=== PATIENT | female | born 1960 | race Caucasian/White ===

== ENCOUNTER 2018-10-03 18:19 | Inpatient (IN) | payer MEDICARE, OTHER ==
[~2018-10-03 18:19] MED LIST: ISOVUE-370 76%-LOCM 1 ML ONE
--- NOTE | 2018-10-03 18:37 | CT ---
Head CT without contrast 10/03/2018: COMPARISON: 07/08/2014 HISTORY: Right-sided weakness, unresponsive TECHNIQUE: Axial CT imaging at 5 mm intervals from vertex through skull base without contrast FINDINGS: The imaged paranasal sinuses and mastoid air cells appear well-aerated. No displaced calvar ial fracture. No intracranial hemorrhage, midline shift, mass effect, or ventricular enlargement. IMPRESSION: No acute findings. Results called to Dr. Cates at 6:32 PM 10/03/2018
[2018-10-03 18:41] LABS: Hemoglobin 12.3 g/dL (12.0-16.0); Mean Corpuscular HGB CONC 32.5 g/dL (32.0-36.0); Mean Corpuscular Hemoglobin 25.8 pg (27.0-31.0); Mean Corpuscular Volume 79.3 fL (78.0-98.0); Mean Platelet Volume 7.7 fL (7.4-10.4); Platelet Count 382 thou/uL (130-400); RBC Distribution Width 14.3 % (11.5-14.5); Red Blood Cell (RBC) Count 4.76 mill/uL (4.20-5.40); White Blood Cell (WBC) Count 10.3 thou/uL (4.8-10.8)
[2018-10-03 18:45] LABS: PTT 27.1 SEC (22.9-36.1); Prothrombin Time 13.1 SEC (12.0-14.7)
[2018-10-03 18:55] LABS: ALT (SGPT) 37 U/L (8-55); AST (SGOT) 20 U/L (5-34); Albumin 4.5 g/dL (3.5-5.0); Alkaline Phosphatase 121 U/L (40-150); Anion Gap 14 mmol/L (10-20); BUN (Urea Nitrogen) 22 mg/dL (9.8-20.1); Bilirubin, Total 0.2 mg/dL (0.2-1.2); Calc. Creatinine Clearance 0 mL/min (70-130); Calcium 9.8 mg/dL (7.8-10.44); Carbon Dioxide 23 mmol/L (22-29); Chloride 107 mmol/L (98-107); Estimated GFR-MDRD 49; Glucose 128 mg/dL (70-105); Potassium 4.1 mmol/L (3.5-5.1); Protein, Total 7.5 g/dL (6.0-8.3); Sodium 140 mmol/L (136-145)
[2018-10-03] MEDS ORDERED: Ondansetron PF 4 MG/2 ML Vial ONE (18:59)
[2018-10-03 19:09] LABS: Band 1 % (5-11); Lymphocytes 7 % (21-51); MDiff Complete? YES; Neutrophil 90 % (42-75); Platelet Morphology Comment Appears Adequate; RBC Morphology Normal; Reactive Lymphocytes 1 % (0-10)
[2018-10-03 19:42] LABS: Bilirubin Negative (Negative); Blood, Urine Moderate (Negative); Clarity CLEAR (Clear); Glucose, Urine (Dipstick) Negative (Negative); Leukocyte Negative (Negative); Nitrite Negative (Negative); Protein, Urine (Dipstick) Negative (Neg-Trace); Specific Gravity, Urine 1.021 (1.002-1.036); Urobilinogen 0.2 mg/dL (0.2-1.0); pH, Urine 6.5 (5.0-9.0)
[2018-10-03 19:43] LABS: Bacteria/HPF None Seen HPF (None Seen); Pathc Cast-AUWi Flag 2.31 (0-2.49)
[2018-10-03 19:54] LABS: Hyaline Casts/LPF NONE SEEN LPF (0-3 Hyaline); Squamous Epithelial 0-3 HPF (0-3); Transitional Epithelial 0-3 HPF (0-3)
[2018-10-03] MEDS ORDERED: Ondansetron ODT 4 MG TAB SL PRN (22:43)
[2018-10-03] MEDS ORDERED: Ondansetron PF 4 MG/2 ML Vial IVP PRN (22:43)
[2018-10-03] MEDS: Sodium Chloride 0.9% 1,000 ML IV SCH (23:08)
[2018-10-03 23:40] VITALS: BMI 35.0
[2018-10-04] MEDS ORDERED: clonazePAM 0.5 MG TAB PO PRN (02:22)
[2018-10-04] MEDS ORDERED: Acetaminophen 650 MG Suppository PR PRN (02:23)
[2018-10-04] MEDS: Promethazine HCl 25 MG/ML VIAL IM/IV PRN ×2 (02:40→08:12)
[2018-10-04 02:46] LABS: #Basophils 0.1 thou/uL (0.0-0.2); #Lymphocytes 3.3 thou/uL (1.20-3.40); #Monocytes 0.6 thou/uL (0.11-0.59); #Neutrophils 7.1 thou/uL (1.40-6.50); %Basophils 0.7 % (0.0-1.0); %Lymphocytes 29.9 % (21.0-51.0); %Monocytes 5.7 % (0.0-10.0); %Neutrophils 63.7 % (42.0-75.0); Hemoglobin 11.7 g/dL (12.0-16.0); Mean Corpuscular Hemoglobin 26.3 pg (27.0-31.0); Mean Corpuscular Volume 79.7 fL (78.0-98.0); Mean Platelet Volume 7.5 fL (7.4-10.4); Platelet Count 359 thou/uL (130-400); RBC Distribution Width 14.2 % (11.5-14.5); Red Blood Cell (RBC) Count 4.44 mill/uL (4.20-5.40); White Blood Cell (WBC) Count 11.2 thou/uL (4.8-10.8)
[2018-10-04 03:15] LABS: Anion Gap 14 mmol/L (10-20); BUN (Urea Nitrogen) 17 mg/dL (9.8-20.1); Calc. Creatinine Clearance 97 mL/min (70-130); Calcium 9.1 mg/dL (7.8-10.44); Carbon Dioxide 24 mmol/L (22-29); Cardiac Risk 4.5 (Less than 4.5); Chloride 107 mmol/L (98-107); Cholesterol 232 mg/dl (< 200 Desired); Estimated GFR-MDRD 72; Glucose 88 mg/dL (70-105); HDL Cholesterol 51 mg/dL (>60 Neg Risk); LDL Cholesterol, Calculated 158 mg/dL; Potassium 3.5 mmol/L (3.5-5.1); Sodium 141 mmol/L (136-145); Triglycerides 116 mg/dL (Less than 150)
[2018-10-04] MEDS ORDERED: Levothyroxine 150 MCG TAB PO SCH (06:00)
--- NOTE | 2018-10-04 06:14 | HP ---
CHIEF COMPLAINT: Right-sided weakness. HISTORY OF PRESENT ILLNESS: Ms. Reyes is a 58-year-old woman, who presents complaining of right-sided weakness that started at some point today, but is unable to give a clear timeframe except that it happened sometime in the morning. She reports having issues with slurred speech, weakness in the right side of her face as well as numbness on the right side of her face, weakness in the bilateral upper and lower extremities, however, worse on the right side. She reports having a headache, but pointing to the right side of her face. States the headache is on the right frontal region, but her main complaint is that of pain surrounding her right ear. She denies having any auditory changes. No difficulty with her hearing. Denies having any neck pain or difficulty with her swallowing. Reports having tenderness to the scalp and temporal region and overall numbness involving the entire right side of her face. She denies any recent trauma. Denies any vision changes. Reports feeling nauseated and states that only Phenergan works for her nausea. Denies having any vomiting. No abdominal pain or cramping. No urinary symptoms. No bowel changes. Denies any recent fevers, chills, or sweats. Denies any neck stiffness or rigidity. Denies any altered sensation in her arms or legs. No back pain. No cervical spine pain or tenderness. All other review of systems is negative. In the ED, she underwent investigations including a CT of the brain that showed no acute findings. CT angiogram of the head and neck was also done, showing no acute findings. When taking report from Dr. Cates, as advised she would be receiving aspirin and Plavix. At this present time, it appears from the notes that the patient did not receive any of these. Per nurse, she has failed bedside dysphagia screening. Once advised she could not eat or drink until reviewed in the morning by Speech Therapy, she states she would like something to eat or drink. Per the nursing staff, she was appeared to have normal mobility in the right arm when she was not aware she was being watched. Multiple reports of inconsistencies with her complaints and examinations. Also, the patient's son reportedly upset with her being admitted, stating that she is a "hypochondriac." ALLERGIES: DOXYCYCLINE. CURRENT MEDICATIONS: 1. Carvedilol. 2. Clonazepam. 3. BuSpar. 4. Levothyroxine. 5. Gallitzin. 6. Amlodipine. 7. Trazodone. 8. Nitroglycerin. 9. Gabapentin. 10. Clopidogrel. 11. Acetaminophen with Codeine. PAST MEDICAL HISTORY: 1. Coronary artery disease. 2. Hypothyroidism. 3. Hypertension. 4. Migraines. 5. Anxiety. 6. ADHD. 7. Bipolar. 8. Depression. PAST SURGICAL HISTORY: 1. Cardiac stents x7. 2. Thoracic surgery, complicated by pneumothorax. 3. Cholecystectomy. 4. Appendectomy. 5. . 6. Hysterectomy. SOCIAL HISTORY: The patient denies any tobacco use, alcohol use, or illicit drug use. PHYSICAL EXAMINATION: GENERAL: The patient appears well developed and well nourished, in no acute distress. VITAL SIGNS: Temperature 98.2, pulse 85, respirations 16, O2 saturation 95% on room air, and blood pressure 143/67. HEENT: Atraumatic. Pupils are equal, round, and reactive to light. Extraocular movements intact without any notable nystagmus. Sclerae are anicteric. Oropharynx is clear. NECK: Supple. Slow but full range of motion. No nuchal rigidity. No stiffness. No cervical spine tenderness. CARDIAC: Regular rate and rhythm. LUNGS: Clear to auscultation bilaterally. ABDOMEN: Soft, nontender, and nondistended. Normoactive bowel sounds present. EXTREMITIES: Without lower leg edema or swelling. SKIN: Without rash or jaundice. NEUROLOGIC: Examination was very inconsistent and often changing throughout her exam and especially when the patient distracted. Initially, the patient reporting a complete weakness in the entire right side including her upper and lower extremities. Not able to lift her arm on initial examination with arm lifting, also with minimal effort to lift the left arm and left leg. When asked to point to where she had the worst pain, which she stated was on the right side of her head and face. The patient initially used her right arm, raising her hand to the level of her shoulder before she quickly brought it down and used her left hand to point to where she had discomfort. Reports reduced sensation on the entire right side of her face, but also reports tenderness to the anterior right side of her face and scalp. No notable deformity, redness, or swelling. No rash. Later once attempted to examine for legal librarian strength and finger grasp, the patient was able, however, slowly to bring both upper extremities over her abdomen and squeeze my fingers with 2/4 power in the right hand and 3/4 power in the left hand. When assessing for facial movements, the patient with minimal efforts to raise either eyebrow, however, states she has no numbness or weakness in her left side of her face. When assessing for tongue deviation, the patient is not able to stick her tongue out, stating she is unable to open her mouth or extend her tongue due to right-sided weakness. Also, no effort to attempt to smile to asses for facial movements. She reported difficulty closing her right eyelid; however, later when instructed to close her eyes, she states that she could, she was able to close both eyes. This would therefore be inconsistent with paralysis. When instructed, I would examine for any exudates or erythema in the oropharynx or sores, she was unable to open her mouth and stick her tongue out to the point where it was much easier to visualize the posterior pharynx as compared to when I asked just stick her tongue out for assessment of tongue deviation. The patient with good strength upon plantar flexion and dorsiflexion bilaterally, but again stated her legs are too weak to lift off the bed, minimal effort is evident. LABORATORY DATA: White blood count 10.3, hemoglobin 12.3, hematocrit 37.8, platelets 382. PT 13, INR 1, and PTT 27.1. Sodium 140, potassium 4.1, chloride 107, BUN 22, creatinine 1.14, GFR 49, glucose 128. POC glucose was 52, however, this was a bad draw as per your staff. Calcium 9.8, total bilirubin 0.2, AST 20, ALT 37, and alkaline phosphatase 121. CK 62, troponin I negative. Total protein 7.5, albumin 4.5, globulin 3. Urinalysis notable for moderate blood, 11 to 20 red blood cells, 4 to 6 white blood cells, 4 to 6 renal epithelial cells. IMAGING DATA: As mentioned above in HPI. IMPRESSION AND PLAN: Ms. Reyes is a 58-year-old woman, admitted for management of the followin. Cerebrovascular accident/transient ischemic attack. The patient reported to have had a stroke by ED physician, and on report, plan was to give her aspirin and Plavix. It does not appear this was given after all. Investigations have been unremarkable including CT of brain and CT angiogram. As mentioned above, neuro exam is very inconsistent and there is a strong possibility that the patient is malingering. I have placed a consult to Neurology, and we will await their input for further recommendations. Following discussion with Dr. Mancilla, we will hold on aspirin at present as she has failed bedside dysphagia screening test as well as the possibility that she is malingering. 2. Right facial numbness/tenderness. We will add on CRP, ESR to rule out the possibility of temporal arteritis. 3. Nausea. The patient requesting Phenergan as she states Zofran does not help. 4. Hypertension. Resume home medications. Monitor blood pressure. 5. Hypothyroidism. Check TSH and morning labs. Resume home medication. 6. Gastrointestinal prophylaxis. 7. Deep venous thrombosis prophylaxis with mechanical SCDs. 8. Full code status. The patient's surrogate decision maker is her son, Raul Reyes. The patient's case was discussed with Dr. Mancilla, who agrees with plan of care as described above. Job ID: [id number]
[2018-10-04 06:23] LABS: Amphetamine Not Detected (NotDetected); Barbiturates Screen Not Detected (NotDetected); Benzodiazepine Screen Not Detected (NotDetected); Cocaine Metabolite Screen Not Detected (NotDetected); Medtox Control Line Valid? VALID (VALID); Medtox Reader # READER 4; Methadone Not Detected (NotDetected); Methamphetamine Not Detected (NotDetected); Opiate Screen Not Detected (NotDetected); Oxycodone Screen Not Detected (NotDetected); Phencyclidine (PCP) Not Detected (NotDetected); THC/Cannabinoid Screen Not Detected (NotDetected); Tricyclic Screen Not Detected (NotDetected)
[2018-10-04] MEDS: Amlodipine 10 MG TAB PO SCH ×2 (08:34→11:25)
[2018-10-04] MEDS: Carvedilol 6.25 MG TAB PO SCH ×2 (08:34→11:26)
[2018-10-04] MEDS: Aspirin 325 mg Enteric Coated Tablet PO SCH ×2 (08:34→11:26)
[2018-10-04] MEDS: Sodium Chloride 0.9% 1,000 ML IV SCH (08:34)
[2018-10-04] MEDS: Clopidogrel Bisulfate 75 MG TAB PO SCH ×2 (08:35→11:26)
[2018-10-04] MEDS: Lithium Carbonate 150 MG CAP PO SCH ×2 (08:35→11:27)
[2018-10-04] MEDS ORDERED: Famotidine/PF 20 mg/2ml Vial SLOW IVP SCH (09:00)
[2018-10-04 11:27] VITALS: BP 125/61
[2018-10-04 11:51] VITALS: TEMP 99.1
--- NOTE | 2018-10-04 15:18 | CON ---
DATE OF CONSULTATION: 10/04/2018 CONSULTING PHYSICIAN: Hospitalist Service. 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 PLAN: 1. Prednisone 20 mg per day for a week. 2. The patient will be discharged home. HISTORY OF PRESENT ILLNESS: Ms. Reyes is a 58-year-old woman, who came in with complaints of right ear pain and facial weakness. This came on yesterday. She had a CT scan of the brain done and CT angiogram, both of which were unremarkable. She denies any lateralized weakness of the extremities. There was no prodromal illness. PAST MEDICAL HISTORY: Hypertension, coronary artery disease. ALLERGIES: DOXYCYCLINE. SOCIAL HISTORY: No tobacco or alcohol. FAMILY HISTORY: Noncontributory. MEDICATIONS: Medication list was reviewed. REVIEW OF SYSTEMS: Ten system review of systems is otherwise negative. PHYSICAL EXAMINATION: VITAL SIGNS: Blood pressure 143/67, pulse 85, respirations 16, and temperature 98.2. HEENT: Pupils are equal and reactive. Conjunctivae are clear. Oropharynx clear. NECK: Supple. No lymphadenopathy noted. EXTREMITIES: No cyanosis or edema. NEUROLOGIC: She is alert and appropriate. Her speech is fluent and clear. Cranial nerve exam was notable for marked weakness of all divisions of the right facial movement including eye closure in frontalis movement. Sensation was subjectively decreased in the right side of the face to light touch. Motor exam showed good strength bilaterally. There was no fix or drift. No tremor. Dysmetria is present. Sensation in the extremities was intact. She can walk independently. LABORATORY STUDIES: Unremarkable CBC, coags, chemistry with a lipid ratio of 4.5, urinalysis and toxicology screen. SUMMARY: This is a middle-aged woman with Borja's palsy. She will be treated with short course of steroids and follow up as an outpatient. Job ID: [id number]
[2018-10-04] MEDS ORDERED: Gabapentin 300 MG CAP PO SCH (21:00)
[2018-10-04] MEDS ORDERED: traZODone HCl 150 MG TAB PO SCH (21:00)
--- NOTE | 2018-10-06 10:38 | DIS ---
DATE OF ADMISSION: 10/03/2018 DATE OF DISCHARGE: 10/04/2018 DIAGNOSES AT THE TIME OF DISCHARGE: 1. Right-sided Borja palsy. 2. Hypertension. 3. Hypothyroidism. 4. Coronary artery disease, status post stenting x5 in the past. 5. Bipolar disorder. 6. History of migraine headaches. 7. Attention deficit hyperactivity disorder. 8. Depression. HOSPITAL COURSE: The patient was a 58-year-old female, who presented to the emergency room with complaints of right-sided weakness also having some issues with slurred speech, weakness in the right side of her face as well as numbness on the right side of the face with some bilateral upper and lower extremity weakness, more pronounced on the right side than on the left. She reports she is having some headaches and some earaches. recent trauma. Denied any vision changes. She denied any fevers, chills, or sweats. In the emergency room, she had CT of the brain done, which showed no acute findings, and CT angiogram of the head and neck was also done and it was negative for any significant findings. During the emergency room visit, her white count was 10.3, hemoglobin 12.3, hematocrit 37.8, platelet count 382. INR 1, PTT 27.1. Sodium 140, potassium 4.1, chloride 107, BUN 22, creatinine 1.14, glucose 128, calcium 9.8, total bilirubin 0.2, AST 20, ALT 37, and alkaline phosphatase 121. Troponin-I was negative. Total protein 7.5, albumin 4.5, and globulin 3. Urinalysis showed moderate amount of blood, 11-20 red blood cells, and 4-6 white blood cells. The patient got admitted to the hospital for further evaluation. The patient was seen by Dr. Carranza for Neurology consultation, who diagnosed her with right-sided Borja palsy. The patient is doing quite well. She is seen and examined before she is discharged. She has a problem with the right, so she wants to go home and get her medications at home. She is scheduled for 60 mg daily until she sees her new primary doctor, Dr. Hinton or Dr. Foreman in [facility]. DIET: She is going to stay on heart-healthy diet. ACTIVITIES: As tolerated. MEDICATIONS: The patient's medications at the time of discharge along with; 1. one tablet once a day. 2. Gabapentin 1 capsule which is 300 mg at bedtime. 3. Levothyroxine 150 mcg once a day. 4. [place] carbonate 150 mg twice a day. 5. Trazodone 300 mg at bedtime. 6. Clopidogrel 75 mg once a day. 7. Klonopin 0.5 mg twice a day p.r.n. 8. Carvedilol 6.25 mg twice a day. 9. Aspirin 325 mg daily. 10. Amlodipine 10 mg daily. 11. Tylenol p.r.n. as needed. CONDITION AT TIME OF DISCHARGE: She is discharged in good condition. TIME SPENT: The time spent on this discharge is less than 30 minutes. Job ID: [id number]
--- NOTE | 2018-10-07 10:35 | CT ---
"PRELIMINARY REPORT" CT angiogram head CT angiogram neck: 10/03/2018 COMPARISON: None HISTORY: Unresponsive, right-sided weakness TECHNIQUE: Axial CT imaging at 1.25 mm intervals from the vertex through the lung apices with IV cont rast using a CT angiogram protocol. Coronal and sagittal 3-D reformatted imaging obtained. FINDINGS: The imaged lung apices appear unremarkable. The imaged paranasal sinuses and mastoid air cells appear unremarkable. Limited assessment for aerodigestive tract abnormality appears unremarkable. The thyroid gland appear s markedly atrophic. No lymphadenopathy is noted within the neck. The origin of the great vessels appears unremarkable. There is atherosclerotic calcification involving the distal aspect of the common carotid artery bilat erally. No hemodynamically significant stenosis on the basis of NASCET criteria is seen involving the common carotid artery or the internal carotid artery on either side. Bilateral vertebral arteries are patent. There is atherosclerotic calcification of the cavernous carotid arteries bilaterally. The A1 segment appears intact bilaterally as do bilateral distal YANIRA branches. The ICA bifurcation and of the M1 segment appears normal bilaterally. The MCA bifurcation appears unremarkable bilaterally with no proximal MCA occlusion noted on either s cristi. The basilar artery appears patent. Bilateral posterior cerebral arteries appear patent as well. No hi gh-grade stenosis, saccular aneurysm, or high-grade stenosis is seen involving the posterior circulation. Review of the osseous structures demonstrates no acute findings. IMPRESSION: No acute findings. Results were called to Dr. Cates 6:54 PM 10/03/2018. Transcribed Date/Time: 10/07/2018 10:35 AM
== END 2018-10-04 14:28 | disposition home or self-care (01) | DRG 74 ==
LOC: ERS 18:19 → OBSVTOIN 20:30 → ERHOLD 20:30 → INTOOBSV 20:30 → 2SE 22:47
PROVIDERS: ADMIT Family Medicine; ATTEND Family Medicine
DX: G51.0 Bell's palsy (principal); I25.10 Atherosclerotic heart disease of native coronary artery without angina pectoris; E03.9 Hypothyroidism, unspecified; I10 Essential (primary) hypertension; G43.909 Migraine, unspecified, not intractable, without status migrainosus; F41.9 Anxiety disorder, unspecified; F90.9 Attention-deficit hyperactivity disorder, unspecified type; F32.9 Major depressive disorder, single episode, unspecified; Z90.49 Acquired absence of other specified parts of digestive tract; Z79.899 Other long term (current) drug therapy; Z88.8 Allergy status to other drugs, medicaments and biological substances; Z90.710 Acquired absence of both cervix and uterus
CPT/HCPCS: 36416; 51701; 70450; 70496; 70498; 80048; 80053; 80061; 80306; 81003; 81015; 82550; 84443; 84484; 85025; 85610; 85652; 85730; 86140; 93005; 96374; A4353; J2405; J2550; Q9966; S0028

== ENCOUNTER 2019-02-10 04:42 | Observation (INO) | payer MEDICARE ==
[2019-02-10] MEDS ORDERED: Morphine 4 MG/ML VIAL ONE (04:58)
[2019-02-10] MEDS ORDERED: Ondansetron PF 4 MG/2 ML Vial ONE (04:58)
[2019-02-10 05:16] LABS: #Basophils 0.1 thou/uL (0.0-0.2); #Eosinphils 0.2 thou/uL (0.0-0.7); #Lymphocytes 2.8 thou/uL (1.20-3.40); #Monocytes 0.7 thou/uL (0.11-0.59); #Neutrophils 3.8 thou/uL (1.40-6.50); %Basophils 0.8 % (0.0-1.0); %Eosinophils 2.1 % (0.0-10.0); %Lymphocytes 36.6 % (21.0-51.0); %Monocytes 9.7 % (0.0-10.0); %Neutrophils 50.8 % (42.0-75.0); Hemoglobin 12.4 g/dL (12.0-16.0); Mean Corpuscular HGB CONC 33.2 g/dL (32.0-36.0); Mean Corpuscular Hemoglobin 25.4 pg (27.0-31.0); Mean Corpuscular Volume 76.7 fL (78.0-98.0); Platelet Count 313 thou/uL (130-400); RBC Distribution Width 13.5 % (11.5-14.5); Red Blood Cell (RBC) Count 4.87 mill/uL (4.20-5.40); White Blood Cell (WBC) Count 7.6 thou/uL (4.8-10.8)
[2019-02-10 05:37] LABS: ALT (SGPT) 29 U/L (8-55); AST (SGOT) 19 U/L (5-34); Albumin 4.4 g/dL (3.5-5.0); Alkaline Phosphatase 145 U/L (40-150); Anion Gap 14 mmol/L (10-20); BUN (Urea Nitrogen) 13 mg/dL (9.8-20.1); Bilirubin, Total 0.2 mg/dL (0.2-1.2); CK (CPK) 75 U/L (29-168); Calc. Creatinine Clearance 0 mL/min (70-130); Calcium 9.5 mg/dL (7.8-10.44); Carbon Dioxide 24 mmol/L (22-29); Chloride 106 mmol/L (98-107); Estimated GFR-MDRD 67; Globulin 2.7 g/dL (2.4-3.5); Glucose 104 mg/dL (70-105); Lipase 41 U/L (8-78); Potassium 4.1 mmol/L (3.5-5.1); Protein, Total 7.1 g/dL (6.0-8.3); Sodium 140 mmol/L (136-145)
[2019-02-10] MEDS ORDERED: Promethazine HCl 25 MG/ML VIAL ONE ×2 (05:52→13:22)
[2019-02-10] MEDS ORDERED: Enoxaparin Sodium 40 MG/0.4 ML SYRINGE SC SCH ×2 (06:00→09:00)
[2019-02-10] MEDS ORDERED: Nitroglycerin 0.4 MG TAB (25 Tab Bottle) PO PRN (07:16)
[2019-02-10] MEDS ORDERED: Promethazine HCl 25 MG/ML VIAL IM/IV PRN (07:17)
[2019-02-10] MEDS ORDERED: Morphine 2 MG/ML SYRINGE SLOW IVP PRN (07:33)
--- NOTE | 2019-02-10 07:51 | RAD ---
XR Chest 1 View Portable History: Chest pain Comparison: Radiograph May 2018 Findings: Low-grade pulmonary venous congestion. No pneumothorax. No significant effusion. Scarring l eft costophrenic sulcus. Cement within a compression fracture upper lumbar spine. Impression: Low-grade pulmonary venous congestion otherwise unchanged exam.
--- NOTE | 2019-02-10 08:04 | HP ---
PRIMARY CARE PROVIDER: Jasmyn Hudson. Referred to [facility] by [facility]. CHIEF COMPLAINT: Pressure chest pain with nausea, described as a heaviness, present 5 hours without relief despite having received multiple doses of morphine. She denies sweats, radiation, or shortness of breath. PAST MEDICAL HISTORY: She states she has had 7 stents in the past, the last in 2017/2018, hypertension, hypothyroidism, migraines, ADHD, bipolar, depression, anxiety. CURRENT MEDICATIONS: 1. Coreg 6.25 mg twice a day. 2. Amlodipine 10 mg a day. 3. Aspirin 81 mg a day. 4. Levothyroxine 150 mcg a day. 5. Plavix 75 mg a day. 6. BuSpar 30 mg twice a day. 7. Venlafaxine 225 mg once a day. 8. Nexium 40 mg a day. 9. Abilify 30 mg at bedtime. 10. Trazodone 300 mg at bedtime. ALLERGIES: DOXYCYCLINE, BENADRYL. PAST SURGICAL HISTORY: In addition to her cardiac stents, she has had a cholecystectomy, appendectomy, , hysterectomy, and a thoracic surgery for pneumothorax. SOCIAL HISTORY: Single. Denies tobacco, alcohol, or illicit drug use. She is oriented x3. She states she is DNAR. Her next of kin is listed as her son, Raul. FAMILY HISTORY: Positive for hypertension, and coronary artery disease. REVIEW OF SYSTEMS: HEAD: No headaches, dizziness, or fainting. EYES: No double vision, blurred vision, or flashing light. EAR, NOSE, AND THROAT: No ear pain or drainage. No nasal bleeding. No trouble swallowing. CARDIAC: No orthopnea or paroxysmal nocturnal dyspnea. RESPIRATION: No cough, wheezing, or asthma. GASTROINTESTINAL: No emesis, diarrhea, melena, or abdominal pain. GENITOURINARY: No hematuria, or dysuria. MUSCULOSKELETAL: No pain, swelling in arms and legs. NEUROLOGICAL: History of TIA earlier this year. No definite history of stroke. PSYCHIATRIC: Anxiety, depression, ADHD, bipolar syndrome. SKIN: No bruising, bleeding, or rash. HEME/LYMPH: No tender or swollen lymph nodes in axilla, inguinal, or cervical area. PHYSICAL EXAMINATION: GENERAL: She is alert female with flat affect, oriented x3. VITAL SIGNS: Blood pressure 148/93, pulse 88, respirations 20, temperature 98.1. She rates her pain level as a steady 7. HEAD, EYES, EARS, NOSE, AND THROAT: Revealed pupils are equal, round, and reactive to light. Extraocular movements are intact. Sclerae are white. Tympanic membranes are clear. Nose is clear. Oral mucous membranes are wet. Dental hygiene is good. NECK: Supple without jugular venous distention, adenopathy or thyromegaly. CHEST: Clear to auscultation and percussion. HEART: Regular rate and rhythm. First and second heart sounds are clear. There are no appreciated murmurs or gallops. ABDOMEN: Soft, bowel sounds are normal. There is no hepatosplenomegaly. No masses. No rebound. No bruits. EXTREMITIES: Revealed no cyanosis, clubbing, or edema. SKIN: Warm and dry without bruises or rash. PULSES: Carotid, radial, and femoral and dorsalis pedis pulses intact and symmetric. HEME/LYMPH: No tender or swollen lymph nodes in axilla, inguinal, or cervical area. NEUROLOGICAL: Cranial nerves 2 through 12 are intact. Moves all extremities. Toes downgoing. Sensations intact. IMAGING DATA: EKG normal, reviewed by me. Chest x-ray, no cardiomegaly, CHF, infiltrates or effusions reviewed by me. LABORATORY DATA: Comprehensive metabolic profile normal. Troponin less than 0.01. CBC unremarkable. ADMITTING DIAGNOSES: 1. Pressure chest pain in patient with history of percutaneous coronary intervention x7. 2. Hypertension. 3. Bipolar syndrome. 4. History of coronary artery disease. 5. Hypothyroidism. PLAN: Serial troponins, aspirin, exercise Cardiolite stress test, which will be converted to chemical stress test if she is unable to walk a treadmill. Job ID: [id number]
[2019-02-10] MEDS ORDERED: Morphine 2 MG/ML SYRINGE ONE (08:53)
[2019-02-10] MEDS ORDERED: busPIRone HCl 10 MG TAB PO SCH (09:00)
[2019-02-10] MEDS ORDERED: Aspirin 325 mg Enteric Coated Tablet PO SCH (09:00)
[2019-02-10] MEDS ORDERED: Clopidogrel Bisulfate 75 MG TAB PO SCH (09:00)
[2019-02-10] MEDS ORDERED: Amlodipine 10 MG TAB PO SCH (09:00)
[2019-02-10 09:38] VITALS: BP 145/87
[2019-02-10] MEDS ORDERED: ADENOSINE 60 MG/20 ML VIAL ONE (10:02)
[2019-02-10 10:53] LABS: Troponin I Less than 0.010 ng/mL (< 0.028)
--- NOTE | 2019-02-10 13:24 | NM ---
MYOCARDIAL PERFUSION SCAN: 02/10/19 The patient is given 11 millicuries of technetium Sestamibi for resting imaging and 30 millicuries fo r stress imaging. Adenosine protocol was followed. INDICATIONS: Chest pain. The left ventricle is imaged with SPECT imaging and projects in three planes. Attenuation correction images obtained. FINDINGS: There is normal activity throughout the left ventricle on both stress and rest images. No evidence of reversible ischemia. Wall motion appears normal. Ejection fraction recorded over 80%. IMPRESSION: Negative Sestamibi stress test. POS: OFF
--- NOTE | 2019-02-10 14:20 | DIS ---
DATE OF ADMISSION: 02/10/2019 DATE OF DISCHARGE: 02/10/2019 PRIMARY CARE PROVIDER: Jasmyn Hudson. DISPOSITION: Discharged to home. FINAL DIAGNOSES: 1. Noncardiac chest pain. 2. Coronary artery disease. 3. Bipolar syndrome. 4. Hypertension. 5. Attention deficit hyperactivity disorder. 6. Hypothyroidism. DISCHARGE MEDICATIONS: 1. Coreg 6.25 mg twice a day. 2. Amlodipine 10 mg a day. 3. Aspirin 81 mg a day. 4. Levothyroxine 150 mcg a day. 5. Plavix 75 mg a day. 6. BuSpar 30 mg twice a day. 7. Venlafaxine 225 mg extended release once a day. 8. Nexium 40 mg a day. 9. Abilify 30 mg at bedtime. 10. Trazodone 300 mg at bedtime. ALLERGIES: TO DOXYCYCLINE AND BENADRYL. CODE STATUS: Full. PENDING AT THE TIME OF DISCHARGE: Nothing. DIET: Heart healthy. The patient presented with 5 hours of unrelieved anterior pressure chest pain. EKG was normal. CBC was normal. Comprehensive metabolic profile was normal x3. Troponin was less than 0.01 x3. A Cardiolite stress test was done, EF 80%, no reversibility, normal wall motion, it looks to be sestamibi stress test. The patient is currently stable, feeling better. She is being discharged to follow up within 1 week with her PCP. CONSULTATIONS: No consultations. PROCEDURES: No procedures. Job ID: [id number]
[2019-02-11] MEDS ORDERED: Levothyroxine 150 MCG TAB PO SCH (06:00)
--- NOTE | 2019-02-14 12:31 | EKG ---
Test Reason : Blood Pressure : / mmHG Vent. Rate : 085 BPM Atrial Rate : 085 BPM P-R Int : 148 ms QRS Dur : 082 ms QT Int : 382 ms P-R-T Axes : 059 053 047 degrees QTc Int : 454 ms Normal sinus rhythm Normal ECG Confirmed by JESUSITA CHILDRESS M.D. ([id number]), business editor BIGG CARR ([id number] on 02/14/2019 12:31:19 PM Referred By: Confirmed By:JESUSITA CHILDRESS M.D.
== END 2019-02-10 15:01 | disposition home or self-care (01) ==
LOC: ERS 04:42 → ERHOLD 05:53
PROVIDERS: ADMIT Hospitalist; ATTEND Hospitalist
DX: R07.89 Other chest pain (principal); I25.10 Atherosclerotic heart disease of native coronary artery without angina pectoris; F31.9 Bipolar disorder, unspecified; I10 Essential (primary) hypertension; F90.9 Attention-deficit hyperactivity disorder, unspecified type; E03.9 Hypothyroidism, unspecified; G43.909 Migraine, unspecified, not intractable, without status migrainosus; F41.9 Anxiety disorder, unspecified; Z66 Do not resuscitate; Z79.02 Long term (current) use of antithrombotics/antiplatelets; Z79.82 Long term (current) use of aspirin; Z79.899 Other long term (current) drug therapy; Z88.1 Allergy status to other antibiotic agents; Z88.8 Allergy status to other drugs, medicaments and biological substances
CPT/HCPCS: 71045; 78452; 80053; 82550; 83690; 84484 ×2; 85025; 93005; 93017; 96374; 96375; 99285; A9500; 36415; J0153; J1650; J2270; J2405; J2550

== ENCOUNTER 2019-04-05 15:06 | Observation (INO) | payer MEDICARE ==
[2019-04-05] MEDS ORDERED: Promethazine HCl 25 MG/ML VIAL ONE (16:00)
[2019-04-05] MEDS ORDERED: Ondansetron PF 4 MG/2 ML Vial IVP PRN (18:13)
[2019-04-05] MEDS ORDERED: Ondansetron ODT 4 MG TAB PO PRN (18:13)
[2019-04-05] MEDS ORDERED: Diazepam 5 MG TAB PO PRN (18:14)
[2019-04-05] MEDS ORDERED: Acetaminophen 325 MG TAB PO PRN (18:15)
[2019-04-05 18:43] VITALS: BMI 36.5
[2019-04-05] MEDS: busPIRone HCl 10 MG TAB PO SCH (20:37)
[2019-04-05] MEDS ORDERED: Atorvastatin Calcium 40 MG TAB PO SCH (21:00)
[2019-04-05] MEDS ORDERED: Aripiprazole 15 MG TAB PO SCH (21:00)
[2019-04-05] MEDS ORDERED: traZODone HCl 150 MG TAB PO SCH (21:00)
[2019-04-05] MEDS ORDERED: Nitroglycerin 0.4 MG TAB (25 Tab Bottle) ONE (21:22)
[2019-04-05] MEDS: Nitroglycerin 0.4 MG TAB (25 Tab Bottle) SL PRN ×3 (21:25→23:14)
[2019-04-05] MEDS: Meclizine HCl 25 MG TAB PO PRN (23:06)
[2019-04-05] MEDS ORDERED: Ketorolac Tromethamine 30 MG/ML VIAL IVP PRN (23:40)
[2019-04-05] MEDS ORDERED: Ketorolac Tromethamine 30 MG/ML VIAL IVP SCH (23:45)
[2019-04-06] MEDS: Promethazine HCl 25 MG in Sodium Chloride 0.9% 50 ML IVPB PRN ×2 (00:28→15:41)
[2019-04-06 01:11] LABS: Troponin I Less than 0.010 ng/mL (< 0.028)
--- NOTE | 2019-04-06 01:46 | HP ---
CHIEF COMPLAINTS: Vertigo, dizziness. HISTORY OF PRESENT ILLNESS: This patient is a 58-year-old female, who initially presented to the emergency department in [place] and was seen there by Dr. Arce. She reported dizziness and nausea there. His exam noted a positive HiNTs exam and a positive Romberg, but she had a negative CT of the brain, but was concern for possible cerebellar infarct, especially based on her history of significant coronary artery disease. The patient reports that she had fairly abrupt onset of dizziness and nausea 2 days ago on 04/03/2019. States that since that time, it has only become progressively worse, as she does not feel well in general and feels faint just sitting in the bed. She has not had vomiting, but has a fairly persistent nausea. Denies headache, blurred vision, or numbness, weakness, or tingling. REVIEW OF SYSTEMS: Notable for some loose bowel movements and significant polyuria since yesterday. She denies any chest pain or shortness of breath, and she denies any other musculoskeletal symptoms. All other systems reviewed. All pertinent positives and negatives are noted in the History of Present Illness. PAST MEDICAL HISTORY: Notable for hypertension, coronary artery disease, hypothyroidism, migraines, ADHD, bipolar disorder, anxiety. PAST SURGICAL HISTORY: Coronary artery stents x7. She had a left lung lesion that was biopsied and was benign. FAMILY HISTORY: Mother had a CVA. Father had ME. A brother with diabetes. Another brother with atrial fibrillation and sleep apnea. SOCIAL HISTORY: Nonsmoker, nondrinker, [id number]. She is single she is full code. Her son, Raul, would be her surrogate decision maker should that become necessary. ALLERGIES: NONE. CURRENT MEDICATIONS: 1. Coreg 6.25 one p.o. b.i.d. 2. Amlodipine 10 mg daily. 3. Aspirin 81 mg daily. 4. Levothyroxine 150 mcg daily. 5. Plavix 75 mg daily. 6. BuSpar 30 mg b.i.d. 7. Venlafaxine 225 mg daily. 8. Nitroglycerin p.r.n. 9. Nexium 40 mg daily. 10. Abilify 30 mg daily. 11. Trazodone 300 mg at bedtime. PHYSICAL EXAMINATION: VITAL SIGNS: Most recent BP 144/67, pulse 74, respirations 15, temp 98.7, O2 saturations 97% on room air. GENERAL APPEARANCE: Age-appropriate female, in no distress. She is awake, alert, oriented, pleasant, cooperative, appears as though she does not feel great. HEENT: PERRL. No OP lesions. NECK: Supple and symmetric. HEART: Regular rate and rhythm without murmurs, gallops, or rubs. LUNGS: Clear bilaterally with no wheezes or rales. ABDOMEN: Soft, nontender, and nondistended. Positive bowel sounds. No masses. No organomegaly. EXTREMITIES: No cyanosis, clubbing, or edema. PSYCH: Normal affect and behavior. NEURO: She has normal cranial nerve function. She has 5/5 strength through all extremities. No deficits of sensation. Her HiNTs and Romberg were not repeated here as it did not make her feel great when those were performed the first time. LABORATORY DATA: White count 7.1, hemoglobin 12.8, platelets 406. Chemistries normal with the exception of alkaline phosphatase of 167. Urinalysis negative. Brain CT, no acute abnormalities. EKG showed normal sinus rhythm with no significant changes. IMPRESSION AND PLAN: 1. Acute onset of vertigo and nausea with positive HiNTs and Romberg. The patient has significant risk for stroke given her significant history of coronary artery disease. She is already on Plavix and aspirin. We will continue those. We will go ahead and start a statin. She reports she had been on a statin in the past, but stopped it for no particular reason. She did not have intolerance to it. We will keep her on the telemetry floor. We will get an MRI in the morning. Neurology consult. We will continue with multiple antiemetics for her through the night. If she should prove to have acute stroke, we will get the neurologist and the stroke team involved. 2. History of fairly severe anxiety and depression. Continue with her usual home medications including the BuSpar, venlafaxine, Abilify, and trazodone. 3. History of coronary artery disease. Continue the aspirin, Plavix, and carvedilol. 4. Hypertension. Continue amlodipine. 5. Hypothyroidism. Continue with the levothyroxine. Job ID: [id number]
[2019-04-06 03:26] LABS: Troponin I Less than 0.010 ng/mL (< 0.028)
[2019-04-06] MEDS ORDERED: Levothyroxine 150 MCG TAB PO SCH (06:00)
[2019-04-06] MEDS ORDERED: Amlodipine 10 MG TAB PO SCH (09:00)
[2019-04-06] MEDS ORDERED: Aspirin 81 mg Enteric Coated Tablet PO SCH (09:00)
[2019-04-06] MEDS ORDERED: Clopidogrel Bisulfate 75 MG TAB PO SCH (09:00)
[2019-04-06] MEDS ORDERED: Venlafaxine HCl XR 75 MG CAP PO SCH (09:00)
--- NOTE | 2019-04-06 10:17 | MRI ---
MRI BRAIN WITHOUT CONTRAST: HISTORY: Vertigo. Dizziness. CORRELATION: The previous day's CT scan. FINDINGS: No restricted diffusion is seen. No evidence of infarct, hemorrhage, midline shift or abnormal extraa xial fluid collections is noted. The ventricular size is normal and the basilar cisterns are patent. There are foci of T2 prolongation in the periventricular white matter, consistent with mild chronic s mall vessel ischemic disease. There is mucosal disease in the paranasal sinuses. No tonsillar herniat ion is seen. IMPRESSION: No evidence of acute intracranial process. POS: OFF
[2019-04-06] MEDS: Meclizine HCl 25 MG TAB PO PRN (10:30)
[2019-04-06] MEDS: busPIRone HCl 10 MG TAB PO SCH (10:30)
[2019-04-06] MEDS: Carvedilol 6.25 MG TAB PO SCH ×2 (10:31→16:28)
--- NOTE | 2019-04-06 10:42 | PDOC.HOSPP ---
- Subjective Encounter Date: 04/06/19 Encounter Time: 10:41 Subjective: Still has the dizziness. The meclizine seems to be helping some. Still clear that it is not positional. - Objective Vital Signs & Weight: Vital Signs (12 hours) Temp Pulse Resp BP BP BP Pulse Ox 04/06/19 10:31 138/71 04/06/19 10:30 91 138/71 04/06/19 07:49 98.9 F 74 17 119/66 96 04/06/19 03:55 97.7 F 65 18 114/56 L 96 04/05/19 23:29 98.3 F 70 18 133/59 L 94 L Weight Weight 187 lb 1.6 oz I&O: 04/05/19 04/06/19 04/07/19 06:59 06:59 06:59 Intake Total 480 Balance 480 Hospitalist ROS - Medication Medications: Active Medications Generic Name Dose Route Start Last Admin Trade Name Freq PRN Reason Stop Dose Admin Acetaminophen 650 mg 04/05/19 18:15 04/05/19 18:51 Tylenol PO 650 mg Q4H PRN Administration Headache/Fever/Mild Pain (1-3) Amlodipine Besylate 10 mg 04/06/19 09:00 04/06/19 10:30 Norvasc PO 10 mg DAILY GHADA Administration Aripiprazole 30 mg 04/05/19 21:00 04/05/19 21:00 Abilify PO Not Given HS GHADA Aspirin 81 mg 04/06/19 09:00 04/06/19 10:28 Ecotrin PO 81 mg DAILY GHADA Administration Atorvastatin Calcium 40 mg 04/05/19 21:00 04/05/19 20:37 Lipitor PO 40 mg HS GHADA Administration Buspirone HCl 30 mg 04/05/19 21:00 04/06/19 10:30 Buspar PO 30 mg BID GHADA Administration Carvedilol 6.25 mg 04/06/19 08:00 04/06/19 10:31 Coreg PO 6.25 mg BID-WM GHADA Administration Clopidogrel Bisulfate 75 mg 04/06/19 09:00 04/06/19 10:29 Plavix PO 75 mg DAILY GHADA Administration Diazepam 5 mg 04/05/19 18:14 04/05/19 20:37 Valium PO 5 mg Q6H PRN Administration Dizziness Promethazine HCl 25 mg/ Sodium 51 mls @ 204 mls/hr 04/05/19 23:21 04/06/19 00 :28 Chloride IVPB 51 mls Q6H PRN Administration Nausea Levothyroxine Sodium 150 mcg 04/06/19 06:00 04/06/19 06:32 Synthroid PO 150 mcg 0600 GHADA Administration Meclizine HCl 25 mg 04/05/19 18:14 04/06/19 10:30 Antivert PO 25 mg Q8H PRN Administration Dizziness Nitroglycerin 0.4 mg 04/05/19 21:21 04/05/19 23:14 Nitrostat SL 0.4 mg Q5MIN PRN Administration Chest Pain Ondansetron HCl 4 mg 04/05/19 18:13 04/05/19 20:38 Zofran IVP 4 mg Q6H PRN Administration Nausea/Vomiting Pantoprazole Sodium 40 mg 04/06/19 09:00 04/06/19 10:29 Protonix PO 40 mg DAILY GHADA Administration Trazodone HCl 300 mg 04/05/19 21:00 04/05/19 21:00 Desyrel PO Not Given HS GHADA Venlafaxine HCl 225 mg 04/06/19 09:00 04/06/19 10:29 Effexor Xr PO 225 mg DAILY GHADA Administration - Exam General Appearance: NAD, awake alert Heart: RRR, no murmur, no gallops, no rubs, normal peripheral pulses Respiratory: CTAB, no wheezes, no rales, no ronchi, normal chest expansion, no tachypnea, normal percussion Gastrointestinal: soft, non-tender, non-distended, normal bowel sounds, no palpable masses, no hepatomegaly, no splenomegaly, no bruit Extremities: no cyanosis, no clubbing, no edema Neurological: no weakness, no focal deficits Neurological - other findings: No nystagmus. Musculoskeletal: normal tone Psychiatric: normal affect, normal behavior, A&O x 3 Hosp A/P (1) Vertigo Code(s): R42 - DIZZINESS AND GIDDINESS Status: Acute (2) Bipolar affective disorder Code(s): F31.9 - BIPOLAR DISORDER, UNSPECIFIED Status: Acute (3) CAD (coronary artery disease) Code(s): I25.10 - ATHSCL HEART DISEASE OF [place] CORONARY ARTERY W/O ANG PCTRS Status: Acute (4) HTN (hypertension) Code(s): I10 - ESSENTIAL (PRIMARY) HYPERTENSION Status: Acute - Plan MRI was negative. Await Neuro consult. Continue symptomatic treatment. Anticipate discharge later today.
[2019-04-06 15:48] VITALS: BP 132/60; TEMP 98.2
--- NOTE | 2019-04-06 16:23 | EKG ---
Test Reason : STAT Blood Pressure : / mmHG Vent. Rate : 066 BPM Atrial Rate : 066 BPM P-R Int : 154 ms QRS Dur : 086 ms QT Int : 428 ms P-R-T Axes : 060 064 060 degrees QTc Int : 448 ms Normal sinus rhythm Normal ECG When compared with ECG of 10-FEB-2019 04:49, No significant change was found Confirmed by DR. Issac FORMAN (3) on 04/06/2019 4:22:56 PM Referred By: ERIKA Confirmed By:DR. Issac FORMAN
[2019-04-06] MEDS ORDERED: Scopolamine 1.5 mg/72 hour Patch TD SCH (17:00)
--- NOTE | 2019-04-06 21:37 | CON ---
DATE OF TELEMEDICINE CONSULTATION: 04/06/2019 CHIEF COMPLAINT: Dizziness. HISTORY OF PRESENT ILLNESS: The patient reports she came in with dizziness. She felt like everything was spinning for the last 2 days. Currently, she is no longer dizzy. She has no buzzing or pain. No weakness or numbness. No visual symptoms. PREVIOUS MEDICAL HISTORY: Positive for hypertension, coronary artery disease. She had 7 stents. She had migraines in the remote past and she also has previous medical history of hypertension, coronary artery disease, hypothyroidism, migraine, ADHD, bipolar, and anxiety. PAST SURGICAL HISTORY: Seven stents in the coronary artery. She had left lung lesion that was biopsied, it was benign. FAMILY HISTORY: Mother had stroke and both parents had hypertension and coronary artery disease. Mom is 80, father is 82. One brother has atrial fibrillation and another brother has diabetes. Sister is in good health and she has one boy and girl, 40 and 37 years old respectively, they are both healthy. SOCIAL HISTORY: Nonsmoker. No alcoholic. She lives with her brother. REVIEW OF SYSTEMS: PULMONARY: Negative for shortness of breath. GI: Positive for loose bowel movements and vomiting. GENITOURINARY: Positive for frequency with urination. CARDIAC: Negative for chest pain or palpitation. PULMONARY: Negative for shortness of breath. NEUROLOGIC: Positive for dizziness. ALLERGIES: NO KNOWN DRUG ALLERGIES. MEDICATIONS: Home medications reviewed and they include, 1. Coreg. 2. Amlodipine. 3. Aspirin. 4. Levothyroxine. 5. Plavix. 6. BuSpar. 7. Venlafaxine. 8. Nitroglycerin. 9. Nexium. 10. Abilify. 11. Trazodone. LABORATORY DATA: White count is 7.1, hemoglobin 12.8, hematocrit 41.2, platelet count 406. Coags normal. Chemistry; sodium 141, potassium 3.9, chloride 105, bicarb 24, BUN 11, creatinine 0.94, glucose 90. Urine tox screen was negative and serology was also reviewed, none recent. MRI of the brain was negative and her CT angiography from October was reviewed and did not show any evidence of vascular stenosis. PHYSICAL EXAMINATION: VITAL SIGNS: Temperature 97.9, pulse 84, blood pressure 147/60, O2 saturations 94%, respiratory rate 16. GENERAL APPEARANCE: Well-built, well-nourished lady, who is comfortable. CHEST: Clear vesicular breathing. CARDIOVASCULAR: S1, S2 heard. No murmurs. ABDOMEN: Soft and nontender. No organomegaly noted. NEUROLOGICAL: General appearance; well-built, well-nourished lady, who is comfortable in bed. Higher intellectual functions. Normal orientation to time, place, and person. Cranial nerves 2 through 12, normal extraocular movements. Pupils 2 mm, reactive to light bilaterally. Normal sensation of face bilaterally and normal extraocular movements. Tongue midline. No atrophy noted. Normal elevation of palate. Normal hearing bilaterally. No facial asymmetry noted. Motor examination, bulk normal, tone normal. Strength 5/5 throughout in iliopsoas, hamstrings, quadriceps, ankle dorsiflexion, plantar flexion, deltoid, biceps, triceps, wrist extension and flexion, finger extension and flexion bilaterally. Sensory; normal touch bilaterally. Cerebellar, [id number] and [id number]-[id number] are normal. Gait not tested. Deep tendon reflexes 1+ throughout. IMPRESSION: The patient is a 58-year-old lady, who presents with dizziness with spinning sensation, which lasted about 2 days. Currently, she is requesting she would like to go home. Her current examination is normal. She has no evidence of any vascular event such as stroke or vascular stenosis on the CT angio. At this time, I do not think this is a stroke or transient ischemic attack. Based on her description of the symptoms, this is more likely to be peripheral vertical without a positional component. She needs full ENT evaluation. TREATMENT RECOMMENDATIONS: I will start her on scopolamine patch to see if she has benefit. She can see an ENT physician as outpatient. Okay to discharge from Neuro standpoint. Job ID: [id number] [facility]
--- NOTE | 2019-04-07 15:40 | DIS ---
DATE OF ADMISSION: 04/05/2019 DATE OF DISCHARGE: 04/06/2019 DISCHARGE DIAGNOSES: 1. Vertigo. 2. Bipolar affective disorder. 3. Coronary artery disease. 4. Hypertension. HISTORY OF PRESENT ILLNESS: The patient is a 58-year-old female who presented to the emergency department with report of vertigo for a couple of days. She had a positive Romberg and a positive HiNTs exam. Therefore, there was concern this was related to a central vertigo. Initial CT was negative. She was transferred to our hospital for observation and further evaluation. HOSPITAL COURSE: The patient was placed on observation. She did undergo an MRI of the brain, which was unremarkable. Echocardiogram was notable for an EF of 55% to 60%. There was some suggestion of diastolic dysfunction with mild MR and mild TR. She was seen in consultation by Neurology, where she continued to have some mild vertigo symptoms, but given the negative workup, it was felt that this was more likely a peripheral vertigo. She had responded to some oral Antivert/meclizine in the hospital. Again, the recommendation from Neurology was that she try a scopolamine patch. With that, she was felt to be stable for discharge. PHYSICAL EXAMINATION: VITAL SIGNS: Temperature is 98.2, pulse 79, BP 132/60, respirations 16 with 100% on room air. HEART: Regular rate and rhythm. LUNGS: Clear. ABDOMEN: Benign. NEUROLOGIC: She appeared to be generally intact. She had no nystagmus. DISPOSITION: The patient is discharged to home. ACTIVITY: As tolerated. DIET: She has no new dietary restrictions. MEDICATIONS: She will be on a scopolamine patch q.72 hours. She will continue with her usual home medication otherwise, and she can use [id number] meclizine as needed. FOLLOWUP: She will follow up with the [facility] and can return to the hospital anytime should she have the need to do so. Job ID: [id number]
== END 2019-04-06 18:29 | disposition home or self-care (01) ==
LOC: ERS 15:06 → 2SE 18:31
PROVIDERS: ADMIT Internal Medicine; ATTEND Internal Medicine
DX: R42 Dizziness and giddiness (principal); F31.9 Bipolar disorder, unspecified; I25.10 Atherosclerotic heart disease of native coronary artery without angina pectoris; I10 Essential (primary) hypertension; E03.9 Hypothyroidism, unspecified; G43.909 Migraine, unspecified, not intractable, without status migrainosus; F90.9 Attention-deficit hyperactivity disorder, unspecified type; F41.9 Anxiety disorder, unspecified; Z79.02 Long term (current) use of antithrombotics/antiplatelets; Z79.82 Long term (current) use of aspirin; Z79.899 Other long term (current) drug therapy; Z88.1 Allergy status to other antibiotic agents; Z95.5 Presence of coronary angioplasty implant and graft
CPT/HCPCS: 70551; 80061; 84484 ×3; 93005; 93306; 96365; 96366; 96375 ×2; 99285; G0378 ×2; 36415; 93010; J1885; J2405; J2550; J8597

== ENCOUNTER 2019-10-02 13:36 | Outpatient (CLI) | payer MEDICARE ==
--- NOTE | 2019-10-02 16:50 | MRI ---
MRI OF THE LEFT SHOULDER WITHOUT CONTRAST: 10/02/19 HISTORY: M25.512, left anterior shoulder pain. Rotator cuff tear. COMPARISON: None. FINDINGS: BICEPS TENDON: There is perching of the biceps tendon with undersurface partial tearing of the subscapularis tendon and insufficient biceps anais. Moderate intra-articular tendinosis. LABRUM: Superior labral tearing anterior-posterior to the biceps labral expansion. Tearing does extend from p osterior superior glenoid cartilage. ROTATOR CUFF: There is a full thickness tear of the posterior 7 mm fibers of the supraspinatus tendon at the critic al zone 1.5 cm from the footprint with a 4 mm gap. There are few wisps of granulation and scar tissue attempting to bridge to this gap. There is also moderate tendinosis of the footprint, bursal surface and articular surface partial tearing. Moderate inner surface partial tearing infraspinatus tendon with interstitial type delamination. CARTILAGE: There is high grade chondral fissuring at posterior superior glenoid near the labral tear. There is a lso high grade chondral loss of the central midline portion of the glenoid on the superior one half a rticular surface. BONES: Moderate generative disease of the acromioclavicular joint. Type III acromion near the subacromial sp moy. Normal glenoid version. The subcoracoid fat evaluation is limited due to all images being fat saturation, likely a technologi st mistake. IMPRESSION: 1. Full thickness tear posterior 7 mm fibers supraspinatus tendon in critical zone 1.5 cm from t he footprint with a 4 to 5 mm gap. 2. High grade tendinosis of the anterior implantation of the fibers of the footprint and high gr katya undersurface partial tearing infraspinatus tendon. 3. Superior labral tear anterior-posterior to the biceps labral expansion. 4. Mild perching of the biceps tendon upon the lesser tuberosity due to insufficient biceps pull ey and low grade undersurface partial tearing subscapularis fibers. POS: HOME
== END 2019-10-02 13:37 | disposition home or self-care (01) ==
LOC: MRI 13:36
PROVIDERS: ATTEND Orthopaedic Surgery
DX: M25.512 Pain in left shoulder (principal); M75.122 Complete rotator cuff tear or rupture of left shoulder, not specified as traumatic; S43.432A Superior glenoid labrum lesion of left shoulder, initial encounter; S43.492A Other sprain of left shoulder joint, initial encounter; M67.814 Other specified disorders of tendon, left shoulder

== ENCOUNTER 2019-11-09 07:21 | Outpatient (CLI) | payer MEDICARE, OTHER ==
--- NOTE | 2019-11-09 14:20 | RAD ---
CHEST ONE VIEW: History: Pre-operative evaluation Comparison: 10-23-2019 FINDINGS: Stable pleural and parenchymal opacity changes in the left costophrenic angle and lung base. Heart si ze is normal. No evidence for other acute process. No pneumonia or edema. IMPRESSION: Stable pleural and parenchymal opacity changes in the left base. Stable vertebroplasty change. No acu te process. POS: RRE
[2019-11-09 16:38] LABS: #Basophils 0.1 thou/uL (0.0-0.2); #Eosinphils 0.1 thou/uL (0.0-0.7); #Lymphocytes 2.3 thou/uL (1.20-3.40); #Monocytes 0.4 thou/uL (0.11-0.59); #Neutrophils 2.9 thou/uL (1.40-6.50); %Eosinophils 1.8 % (0.0-10.0); %Lymphocytes 39.6 % (21.0-51.0); %Monocytes 7.3 % (0.0-10.0); %Neutrophils 50.3 % (42.0-75.0); Hemoglobin 13.6 g/dL (12.0-16.0); Mean Corpuscular HGB CONC 32.3 g/dL (32.0-36.0); Mean Corpuscular Hemoglobin 26.4 pg (27.0-31.0); Mean Corpuscular Volume 81.8 fL (78.0-98.0); Mean Platelet Volume 8.2 fL (7.4-10.4); Platelet Count 410 thou/uL (130-400); RBC Distribution Width 14.4 % (11.5-14.5); Red Blood Cell (RBC) Count 5.14 mill/uL (4.20-5.40); White Blood Cell (WBC) Count 5.8 thou/uL (4.8-10.8)
[2019-11-09 16:48] LABS: Anion Gap 15 mmol/L (10-20); BUN (Urea Nitrogen) 11 mg/dL (9.8-20.1); Calc. Creatinine Clearance 0 mL/min (70-130); Calcium 9.2 mg/dL (7.8-10.44); Carbon Dioxide 28 mmol/L (22-29); Chloride 101 mmol/L (98-107); Estimated GFR-MDRD 56; Glucose 100 mg/dL (70-105); Potassium 4.4 mmol/L (3.5-5.1); Sodium 140 mmol/L (136-145)
[2019-11-09 17:01] LABS: INR-International Normal Ratio 0.9; Prothrombin Time 11.9 sec (12.0-14.7)
== END 2019-11-09 07:22 | disposition home or self-care (01) ==
LOC: LABBT 07:21
PROVIDERS: ATTEND Orthopaedic Surgery
DX: Z01.818 Encounter for other preprocedural examination (principal); Z11.59 Encounter for screening for other viral diseases; M75.122 Complete rotator cuff tear or rupture of left shoulder, not specified as traumatic; Z98.890 Other specified postprocedural states
CPT/HCPCS: 71046; 80048; 85025; 85610; U0003; 87635

== ENCOUNTER 2019-11-12 07:00 | Day surgery (SDC) | payer MEDICARE ==
[2019-11-10 11:17] VITALS: BMI 31.2
[2019-11-12] MEDS ORDERED: Fentanyl 100 MCG/2 ML VIAL ONE ×3 (08:11→12:56)
[2019-11-12] MEDS ORDERED: Midazolam HCl 2 mg/2 ml Vial ONE (08:11)
[2019-11-12] MEDS ORDERED: Lidocaine 1% w/Epinephrine 1:100K 20 ML VIAL ONE (09:56)
[2019-11-12] MEDS ORDERED: Zolpidem Tartrate 5 MG TAB PO PRN (10:19)
[2019-11-12] MEDS ORDERED: Ondansetron PF 4 MG/2 ML Vial IVP PRN (10:19)
[2019-11-12] MEDS ORDERED: Ropivacaine 0.2% 550 ML 550 ML NERVE BLCK SCH (10:19)
[2019-11-12] MEDS ORDERED: Promethazine HCl 25 MG/ML VIAL IM PRN (10:19)
[2019-11-12] MEDS ORDERED: HYDROcodone/Acetaminophen 5/325 mg Tablet PO PRN ×2 (10:19)
[2019-11-12] MEDS ORDERED: traMADol HCl 50 MG TAB PO PRN ×2 (10:19)
[2019-11-12] MEDS ORDERED: PHENYLEPHRINE-NS 100 MCG/ML 10 ML SYRINGE ONE ×2 (10:30→11:22)
[2019-11-12] MEDS ORDERED: Dexamethasone 20 MG/5 ML VIAL ONE (11:22)
[2019-11-12] MEDS ORDERED: EPHEDRINE 25 MG/5 ML SYRINGE ONE (11:22)
[2019-11-12] MEDS ORDERED: Ondansetron PF 4 MG/2 ML Vial ONE (11:22)
[2019-11-12] MEDS ORDERED: Rocuronium Bromide 10 MG/ML (10ML VIAL) ONE (11:22)
[2019-11-12] MEDS ORDERED: Ketorolac Tromethamine 30 MG/ML VIAL ONE (11:22)
[2019-11-12] MEDS ORDERED: Glycopyrrolate 0.2 MG/ML 5 ML SYRINGE ONE (11:22)
[2019-11-12] MEDS ORDERED: Ropivacaine 0.5% HCl/PF (150 MG/30 ML VIAL) ONE (11:22)
[2019-11-12] MEDS ORDERED: Ropivacaine 0.2% HCl/PF (40 MG/20 ML VIAL) ONE (11:22)
[2019-11-12] MEDS ORDERED: Lidocaine 1% PF 5 ML VIAL ONE (11:22)
[2019-11-12] MEDS ORDERED: PROPOFOL 200 MG/20 ML VIAL ONE (11:22)
[2019-11-12] MEDS ORDERED: Ketorolac Tromethamine 30 MG/ML VIAL IVP SCH (12:00)
[2019-11-12 12:26] LABS: Syphilis Antibody Nonreactive (Nonreactive); Syphilis Antibody Index 0.04 S/CO (<1.00 Non-Reactive)
[2019-11-12 12:29] LABS: HBSAB Concentration 2.41 mIU/mL; HBSAg Index 0.15 S/CO (0-0.99); HIV (1/2) Antibody/Antigen Non-Reactive (NonReactive); HIV 1/2 INDEX 0.08 S/CO (<1.00); Hep A IgM AB Non-Reactive (NonReactive); Hep A IgM S/CO 0.22 S/CO (0-0.79); Hep B Core Total Ab Non-Reactive (NonReactive); Hep B Core Total Index 0.08 S/CO (0-0.79); Hep B Surf AB Non-Reactive (NonReactive); Hep B Surf Ag Non-Reactive S/CO (NonReactive); Hep C IgG Ab Non-Reactive (NonReactive); Hep C Index 0.63 S/CO (0-0.79)
[2019-11-12] MEDS ORDERED: HYDROcodone/Acetaminophen 5/325 mg Tablet ONE (15:23)
--- NOTE | 2019-11-12 17:19 | OP ---
DATE OF PROCEDURE: 11/12/2019 PREOPERATIVE DIAGNOSES: 1. Left full-thickness rotator cuff tear. 2. Acromioclavicular joint arthritis. 3. Biceps tendinopathy. 4. Possible leading edge subscapularis tear. POSTOPERATIVE DIAGNOSES: 1. High-grade near full-thickness left rotator cuff tear. 2. Full-thickness chondral defect, grade 4, with chondral flaps. 3. Superior labral tear with biceps tendinopathy. 4. Acromioclavicular joint arthritis. PROCEDURES PERFORMED: 1. Left rotator cuff repair. 2. Biceps tenodesis. 3. Debridement of the humeral chondral defect. BACK TENDER PAPER MACHINE: None. ANESTHESIA: Dr. Bond. The patient received a general endotracheal intubation with interscalene block. ESTIMATED BLOOD LOSS: Less than 30 mL. TOURNIQUET TIME: None. ANTIBIOTICS: 2 g Ancef. IMPLANTS: 5.5 Corkscrew, 4.75 SwiveLock, 7 x 19.5 mm Bio-Tenodesis screw. COMPLICATIONS: None. HISTORY OF PRESENT ILLNESS: Ms. Reyes is a 59-year-old female, who presents with pain in her left shoulder. The patient had failed conservative measures. The patient had 6 months of pain with increase in last month. She is disabled. She is right-hand dominant. She had clearance by business representative for left shoulder arthroscopy, rotator cuff repair with possible biceps tenodesis and indicated procedures. I discussed the risks and benefits of procedure to include pain, scar, bleeding, infection, damage to vital structures, decreased range of motion and strength, continued pain despite surgical intervention, failure of repair, loss of life or limb. The patient understood the risks and benefits, and elected to proceed, DESCRIPTION OF PROCEDURE: Time-out was performed designating the patient's left upper extremity as the operative site based on site, consents, and marking. After time-out, the patient's left upper extremity was prepped and draped in a sterile fashion. The patient's posterior working portal was placed, anterior working portal was placed. She had had a previous scope on this site, when we tried to use this previous portal sites, looking intra-articularly, immediately I saw the near full-thickness defect in the humeral head. It was large with some small cartilage flaps. I placed my anterior working portal in the interval. I debrided off the small cartilage flaps. I looked at the subscap, which looked intact throughout its course. I debrided the undersurface of the supraspinatus, where I felt the tear was emanating, biceps had almost complete peel back and was torn on the undersurface and also had some grooving noted proximally in the head, I therefore did a tenotomy and did completion of my diagnostic intra-articular scope and then removed subacromially all the bursa. There was a small poke hole, which was visualized in the footprint, which I expanded, placed a nick to clean up the space and placed the 5.5 corkscrew screw in that interval, sewed the tendon down with 2 horizontal mattress sutures and sewed the tendon down with a lateral row with 4.75 SwiveLock. I then unroofed the biceps, pulled it out, used a swaged FiberTape loop to pass three stitches through it, and drilled the 7.5 mm hole and placed a 7 mm Bio-Tenodesis screw, had firm fixation, had a little nodular end, but I felt that I had overall good stability of the biceps. I sewed a knot over the top with the FiberTape I had placed, cut that and pulled the inner diameter suture out of the hole. I then washed and took final pictures and closed. The patient will be on elbow, wrist, and hand motion and passive range of motion in 2 weeks. The patient's outlook is guarded. I am concerned about her chondral defect and it continuing to cause her pain. Ultimately, this may lead to arthritis long-term and require conversion to a total shoulder. The patient will be followed postoperatively. Job ID: [id number] [facility]
== END 2019-11-12 16:08 | disposition home or self-care (01) ==
LOC: SDC 07:00
PROVIDERS: ATTEND Orthopaedic Surgery
PROC: 0LQ24ZZ Repair Left Shoulder Tendon, Percutaneous Endoscopic Approach (ICD-10-PCS; principal; 2019-11-12)
PROC: 0RHK44Z Insertion of Internal Fixation Device into Left Shoulder Joint, Percutaneous Endoscopic Approach (ICD-10-PCS; 2019-11-12)
PROC: 0LS44ZZ Reposition Left Upper Arm Tendon, Percutaneous Endoscopic Approach (ICD-10-PCS; 2019-11-12)
PROC: 0RHK44Z Insertion of Internal Fixation Device into Left Shoulder Joint, Percutaneous Endoscopic Approach (ICD-10-PCS; 2019-11-12)
PROC: 0RNK4ZZ Release Left Shoulder Joint, Percutaneous Endoscopic Approach (ICD-10-PCS; 2019-11-12)
PROC: 3E0T3BZ Introduction of Anesthetic Agent into Peripheral Nerves and Plexi, Percutaneous Approach (ICD-10-PCS; 2019-11-12)
DX: M75.112 Incomplete rotator cuff tear or rupture of left shoulder, not specified as traumatic (principal); S43.432A Superior glenoid labrum lesion of left shoulder, initial encounter; M19.012 Primary osteoarthritis, left shoulder; M67.922 Unspecified disorder of synovium and tendon, left upper arm; G89.18 Other acute postprocedural pain; E78.00 Pure hypercholesterolemia, unspecified; J45.909 Unspecified asthma, uncomplicated; F32.9 Major depressive disorder, single episode, unspecified; F41.9 Anxiety disorder, unspecified; I25.2 Old myocardial infarction; I25.10 Atherosclerotic heart disease of native coronary artery without angina pectoris; K21.9 Gastro-esophageal reflux disease without esophagitis; Z87.891 Personal history of nicotine dependence; Z79.899 Other long term (current) drug therapy; Z88.1 Allergy status to other antibiotic agents; Z95.5 Presence of coronary angioplasty implant and graft
CPT/HCPCS: 29826; 29827; 29828; 64416; 86704; 86706; 86709; 86780; 86803; 87340; 87389; 97139; A4306; C1713 ×3; J1100; J1885; J2001; J2250; J2405; J2704; J2795; J3010

== ENCOUNTER 2019-11-13 23:00 | Emergency (ER) | payer MEDICARE ==
[2019-11-14] MEDS ORDERED: Bupivacaine PF 0.5% 30 ML VIAL ONE (01:41)
[2019-11-14] MEDS ORDERED: Promethazine HCl 25 MG/ML VIAL IM PRN (02:06)
[2019-11-14] MEDS ORDERED: Zolpidem Tartrate 5 MG TAB PO PRN (02:06)
[2019-11-14] MEDS ORDERED: Ropivacaine 0.2% 550 ML 550 ML NERVE BLCK SCH (02:06)
[2019-11-14] MEDS ORDERED: Ondansetron PF 4 MG/2 ML Vial IVP PRN (02:06)
[2019-11-14] MEDS ORDERED: Ondansetron PF 4 MG/2 ML Vial ONE (02:08)
[2019-11-14] MEDS ORDERED: Promethazine HCl 25 MG/ML VIAL ONE ×2 (02:12→02:20)
== END 2019-11-14 03:26 | disposition home or self-care (01) ==
LOC: ERS 23:00
DX: G89.18 Other acute postprocedural pain (principal); M25.512 Pain in left shoulder; I10 Essential (primary) hypertension; E03.9 Hypothyroidism, unspecified; F31.9 Bipolar disorder, unspecified; F41.9 Anxiety disorder, unspecified; F90.9 Attention-deficit hyperactivity disorder, unspecified type; Z79.82 Long term (current) use of aspirin; Z79.899 Other long term (current) drug therapy
CPT/HCPCS: 96365; 99283; A4306; J2405; J2550; J2795; S0020

== ENCOUNTER 2022-02-16 02:19 | Observation (INO) | payer MEDICARE, OTHER ==
[2022-02-16 02:52] LABS: #Basophils 0.1 thou/uL (0.0-0.2); #Eosinphils 0.2 thou/uL (0.0-0.7); #Lymphocytes 2.8 thou/uL (1.20-3.40); #Monocytes 0.5 thou/uL (0.11-0.59); #Neutrophils 2.7 thou/uL (1.40-6.50); %Basophils 0.8 % (0.0-1.0); %Eosinophils 2.5 % (0.0-10.0); %Lymphocytes 44.6 % (21.0-51.0); %Monocytes 8.3 % (0.0-10.0); %Neutrophils 43.7 % (42.0-75.0); Hemoglobin 14.3 g/dL (12.0-16.0); Mean Corpuscular HGB CONC 34.1 g/dL (32.0-36.0); Mean Corpuscular Hemoglobin 30.6 pg (27.0-31.0); Mean Corpuscular Volume 89.7 fL (78.0-98.0); Mean Platelet Volume 7.3 fL (7.4-10.4); Platelet Count 316 thou/uL (130-400); RBC Distribution Width 12.9 % (11.5-14.5); Red Blood Cell (RBC) Count 4.67 mill/uL (4.20-5.40); White Blood Cell (WBC) Count 6.2 thou/uL (4.8-10.8)
[2022-02-16 03:04] LABS: INR-International Normal Ratio 0.9; Prothrombin Time 11.8 sec (12.0-14.7)
[2022-02-16 03:12] LABS: ALT (SGPT) 43 U/L (8-55); AST (SGOT) 32 U/L (5-34); Albumin 3.8 g/dL (3.5-5.0); Alkaline Phosphatase 126 U/L (40-110); Anion Gap 14 mmol/L (10-20); BUN (Urea Nitrogen) 12 mg/dL (9.8-20.1); Bilirubin, Total 0.2 mg/dL (0.2-1.2); Calc. Creatinine Clearance 0 mL/min (70-130); Calcium 8.8 mg/dL (7.8-10.44); Carbon Dioxide 23 mmol/L (22-29); Chloride 103 mmol/L (98-107); Estimated GFR 71; Globulin 3.1 g/dL (2.4-3.5); Glucose 99 mg/dL (70-105); Protein, Total 6.9 g/dL (6.0-8.3); Sodium 136 mmol/L (136-145)
[2022-02-16] MEDS ORDERED: Nitroglycerin 2% Ointment 1 INCH/1 GM Packet ONE (03:23)
[2022-02-16] MEDS ORDERED: Promethazine 25 MG TAB ONE (03:23)
[2022-02-16 03:28] LABS: Acetaminophen Less than 10.0 mcg/mL (10.0-30.0); Alcohol Less than 10 mg/dL (Less than 10); Salicylate Less than 8.0 mg/dL (15.0-30.0)
[2022-02-16 03:49] LABS: Amphetamine Not Detected (NotDetected); Barbiturates Screen Not Detected (NotDetected); Benzodiazepine Screen Not Detected (NotDetected); Cocaine Metabolite Screen Not Detected (NotDetected); Methadone Not Detected (NotDetected); Methamphetamine Not Detected (NotDetected); Opiate Screen Not Detected (NotDetected); Oxycodone Screen Not Detected (NotDetected); Phencyclidine (PCP) Not Detected (NotDetected); THC/Cannabinoid Screen Not Detected (NotDetected); Tricyclic Screen Not Detected (NotDetected)
[2022-02-16] MEDS ORDERED: Prochlorperazine Maleate 5 MG TAB PO PRN (04:03)
[2022-02-16] MEDS ORDERED: hydrALAZINE 20 MG/ML VIAL SLOW IVP PRN (04:23)
[2022-02-16 06:02] VITALS: BMI 31.1
[2022-02-16] MEDS: Promethazine HCl 25 MG/ML VIAL IM PRN ×4 (06:54→21:18)
[2022-02-16 07:01] LABS: Troponin I Less than 0.010 ng/mL (< 0.028)
[2022-02-16] MEDS ORDERED: Calcium Carbonate 500 MG ChewTAB PO PRN (08:23)
[2022-02-16] MEDS ORDERED: Non-Formulary Item 1 EACH (Buspirone Hcl [Buspirone Hcl] 30 MG Tablet) PO SCH (09:00)
[2022-02-16] MEDS ORDERED: Iopamidol-370 76% 500 ML 1 ML ONE (09:05)
[2022-02-16 09:46] LABS: Troponin I Less than 0.010 ng/mL (< 0.028)
[2022-02-16] MEDS: Enoxaparin Sodium 40 MG/0.4 ML SYRINGE SC SCH (09:48)
[2022-02-16] MEDS: busPIRone HCl 10 MG TAB PO SCH ×2 (09:48→21:15)
[2022-02-16] MEDS: Venlafaxine HCl XR 75 MG CAP PO SCH (09:49)
[2022-02-16] MEDS: Amlodipine 10 MG TAB PO SCH (09:49)
[2022-02-16] MEDS: Carvedilol 6.25 MG TAB PO SCH ×2 (09:49→21:15)
[2022-02-16] MEDS: Aspirin 81 mg Enteric Coated Tablet PO SCH (09:49)
[2022-02-16] MEDS ORDERED: Lidocaine 2% Viscous Solution 20 ML, Aluminum & Magnesium Hydroxide 30 ML, Donnatal Eli... SSW PRN (10:21)
[2022-02-16] MEDS ORDERED: Nitroglycerin 0.4 MG TAB (25 Tab Bottle) SL PRN (10:21)
[2022-02-16 11:04] LABS: CKMB 0.5 ng/mL (0-6.6); Troponin I Less than 0.010 ng/mL (< 0.028)
[2022-02-16] MEDS: Levothyroxine 150 MCG TAB PO SCH (11:14)
[2022-02-16] MEDS ORDERED: Morphine 4 MG/ML VIAL SLOW IVP SCH (12:45)
[2022-02-16 15:04] LABS: Troponin I Less than 0.010 ng/mL (< 0.028)
[2022-02-16] MEDS: Morphine 4 MG/ML VIAL SLOW IVP PRN ×2 (17:37→21:38)
[2022-02-16] MEDS ORDERED: traZODone HCl 50 MG TAB PO SCH (21:00)
[2022-02-16] MEDS ORDERED: traZODone HCl 150 MG TAB PO SCH (21:00)
[2022-02-16] MEDS ORDERED: Atorvastatin Calcium 40 MG TAB PO SCH (21:00)
[2022-02-17] MEDS: Morphine 4 MG/ML VIAL SLOW IVP PRN ×2 (03:48→12:27)
[2022-02-17] MEDS: Promethazine HCl 25 MG/ML VIAL IM PRN ×2 (03:49→13:51)
[2022-02-17] MEDS: Levothyroxine 150 MCG TAB PO SCH (06:00)
[2022-02-17] MEDS ORDERED: Non-Formulary Item 1 EACH (Esomeprazole Magnesium [Nexium] 40 MG Cap) PO SCH (08:00)
[2022-02-17] MEDS ORDERED: ADENOSINE 60 MG/20 ML VIAL ONE (08:07)
[2022-02-17] MEDS: busPIRone HCl 10 MG TAB PO SCH (08:39)
[2022-02-17] MEDS: Venlafaxine HCl XR 75 MG CAP PO SCH (08:39)
[2022-02-17] MEDS: Carvedilol 6.25 MG TAB PO SCH (12:26)
[2022-02-17] MEDS: Amlodipine 10 MG TAB PO SCH (12:26)
[2022-02-17] MEDS: Enoxaparin Sodium 40 MG/0.4 ML SYRINGE SC SCH (12:27)
[2022-02-17] MEDS: Aspirin 81 mg Enteric Coated Tablet PO SCH (12:27)
[2022-02-17 13:19] VITALS: BP 150/95; TEMP 98.4
== END 2022-02-17 18:05 | disposition home or self-care (01) ==
LOC: ERS 02:19 → 2NO 03:54
PROVIDERS: ADMIT Family Medicine; ATTEND Family Medicine
DX: R53.1 Weakness (principal); I10 Essential (primary) hypertension; R07.89 Other chest pain; E03.9 Hypothyroidism, unspecified; E78.5 Hyperlipidemia, unspecified; I25.10 Atherosclerotic heart disease of native coronary artery without angina pectoris; M47.812 Spondylosis without myelopathy or radiculopathy, cervical region; M47.816 Spondylosis without myelopathy or radiculopathy, lumbar region; M48.02 Spinal stenosis, cervical region; M51.36 Other intervertebral disc degeneration, lumbar region; M48.061 Spinal stenosis, lumbar region without neurogenic claudication; F17.210 Nicotine dependence, cigarettes, uncomplicated; I95.9 Hypotension, unspecified; Z79.890 Hormone replacement therapy; Z79.899 Other long term (current) drug therapy; Z88.1 Allergy status to other antibiotic agents; Z88.5 Allergy status to narcotic agent; Z88.8 Allergy status to other drugs, medicaments and biological substances; Z95.5 Presence of coronary angioplasty implant and graft; Z98.890 Other specified postprocedural states; Z20.822 Contact with and (suspected) exposure to COVID-19
CPT/HCPCS: 70450; 70496; 70498; 70551; 71045; 72125; 72131; 78452; 80061; 80306; 80307; 82553; 82962; 84484 ×2; 85610; 85730; 93005; 93017; 93306; 96372 ×2; 96374; 96376 ×2; 97116; 99285; A9500; G0378 ×3; U0003; U0005; 36415; 36416; 80053; 84443; 85025; 93010; J0153; J1650; J2270; J2550; Q0169; Q9967